=== PATIENT | female | born 2000 | race Asian ===

== ENCOUNTER 2022-02-21 18:42 | Emergency (ER) | payer BC, SELFPAY ==
--- NOTE | 2022-02-21 18:46 | ED.SKABFB ---
HPI - Skin/Abscess/Foreign Bdy General Chief complaint: Skin/Abscess/Foreign Body Stated complaint: Skin Irritation Time Seen by Provider: 02/21/22 18:46 Source: patient and RN notes reviewed History of Present Illness HPI narrative: Patient is a 21-year-old female presents the urgent care with her mother with complaints of skin irritation to the fingertips that is been ongoing for the last couple weeks. Patient states it started out on the right index finger and is now spread to a couple other fingers. Patient states she also woke up this morning with nasal congestion and she has been using Flonase nasal spray. States that she slept with a fan last night and woke up with a sore throat as well as a mild cough. Patient took Mucinex. States that she has been using Neosporin to the fingertips and covering them with bandages and metal foam splints while at work. Denies of any recent fevers or ill contact. States that she has a dermatology appointment in 2 months but was unable to wait due to the excessive peeling. No other acute complaints. No acute distress noted. Patient read the plan of care. Some parts of this dictation were generated by voice recognition software and may contain typographical and/or grammatical inaccuracies. Related Data Home Medications Medication Instructions Recorded Confirmed dextroamphetamine-amphetamine ER 25 mg PO DAILY 02/21/22 02/21/22 25 mg 24hr capsule,extend release famotidine 20 mg tablet 20 mg PO DAILY 02/21/22 02/21/22 norgestimate 0.25 mg-ethinyl 1 tablet PO DAILY 02/21/22 02/21/22 estradiol 35 mcg tablet (Estarylla) Allergies Allergy/AdvReac Type Severity Reaction Status Date / Time No Known Allergies Allergy Verified 02/21/22 18:45 Review of Systems Review of Systems: CONSTITUTIONAL: Denies fever, chills, or sweats. EYES: Denies visual changes, redness, or discharge. ENT: Reports of throat irritation, moderate postnasal drainage, nasal congestion and rhinorrhea CARDIOVASCULAR: Denies chest pain, palpitations, or edema. RESPIRATORY: Reports a mild cough without dyspnea GASTROINTESTINAL: Denies abdominal pain, nausea, vomiting, or diarrhea. GENITOURINARY: Denies dysuria or hematuria. SKIN: Reports of peeling of the fingertips MUSCULOSKELETAL: Denies back pain, joint pain, or myalgia. NEUROLOGIC: Denies headache, numbness, or weakness. All other systems reviewed are negative, except as documented in HPI. PMFSH Comments At the time of my signature, I reviewed and agree with the nursing past medical, surgical, social, and family history. There is no relevant family history pertinent to the patient complaint. Exam Narrative: GENERAL: This is a well-nourished, well-developed patient, in no apparent distress. HEAD: normocephalic, atraumatic. EYES: PERRL. Sclera clear/white. Vision is grossly intact. EARS: External ears normal, auditory canals clear and without drainage, TMs normal without perforation. Hearing grossly intact. NOSE: External nose normal with no obvious nasal discharge, nares without redness, no rhinorrhea. THROAT: Mucous membranes moist, moderate postnasal drainage without exudate or ulceration NECK: Neck supple CARDIOVASCULAR: Regular rate and rhythm without murmurs, gallops, or rubs. RESPIRATORY: Clear to auscultation. Breath sounds equal bilaterally. No wheezes, rales, or rhonchi. SKIN: Epidermis peeling of the fingertips bilaterally without pain NEURO: awake, alert, and oriented to person, place and time. There were no obvious focal neurologic abnormalities. EXTREMITIES: No clubbing, cyanosis, or edema. Course Course Level of Care: Express Care Visit Vital Signs Vital signs: Vital Signs Temperature 98.3 F 02/21/22 18:51 Pulse Rate 90 02/21/22 18:51 Respiratory Rate 16 02/21/22 18:51 Blood Pressure 117/71 02/21/22 18:51 Pulse Oximetry 99 02/21/22 18:51 Oxygen Delivery Room Air 02/21/22 18:51 Temperature 98.3 F 02/21/22 18:51 P
[2022-02-21 18:51] VITALS: BP 117/71; PULSE 90; RESP 16; TEMP 36.8; O2SAT 99
== END 2022-02-21 19:19 | disposition home or self-care (01) ==
PROVIDERS: Emergency Provider Nurse Practitioner Family; PCP Family Medicine
DX: R23.4 Changes in skin texture (principal); J06.9 Acute upper respiratory infection, unspecified; K21.9 Gastro-esophageal reflux disease without esophagitis; F90.9 Attention-deficit hyperactivity disorder, unspecified type
CPT/HCPCS: 99213; G0463

== ENCOUNTER 2022-12-14 18:08 | Emergency (ER) | payer BC, SELFPAY ==
[2022-12-14 18:32] VITALS: BP 123/66; PULSE 80; RESP 18; TEMP 36.2; O2SAT 100
--- NOTE | 2022-12-14 19:28 | ED.URI ---
HPI - URI/Sore Throat General Chief Complaint: Upper Respiratory Infection Stated Complaint: congestion Time Seen by Provider: 12/14/22 19:28 Source: patient Mode of arrival: ambulatory Limitations: no limitations History of Present Illness HPI Narrative: 22-year-old female presents with complaint of postnasal drainage, nasal congestion, sinus pain and pressure, intermittent headaches, fatigue for the past 8-10 days. Patient taking [place], saline nasal spray and Mucinex D without relief of symptoms. Afebrile. Patient reports that sore throat is worse at night and in the morning. States that throat is very dry, voice is worse. Denies chest pain and shortness of breath. Reports that cough started 2-3 days ago. Coughing up white sputum. Also reports pressure to bilateral ears. All systems reviewed and negative except as noted above. Related Data Home Medications Medication Instructions Recorded Confirmed dextroamphetamine-amphetamine ER 25 mg PO DAILY 02/21/22 12/14/22 25 mg 24hr capsule,extend release famotidine 20 mg tablet 20 mg PO DAILY 02/21/22 12/14/22 norgestimate 0.25 mg-ethinyl 1 tablet PO DAILY 02/21/22 12/14/22 estradiol 35 mcg tablet (Estarylla) Allergies Allergy/AdvReac Type Severity Reaction Status Date / Time No Known Allergies Allergy Verified 12/14/22 19:14 Review of Systems Review of Systems: CONSTITUTIONAL: Denies fever, chills, or sweats. reports fatigue. EYES: Denies visual changes, redness, or discharge. ENT: Reports rhinorrhea, congestion, sore throat, bilateral ear pressure. CARDIOVASCULAR: Denies chest pain, palpitations, or edema. RESPIRATORY: Reports cough. Denies dyspnea. GASTROINTESTINAL: Denies abdominal pain, nausea, vomiting, or diarrhea. GENITOURINARY: Denies dysuria or hematuria. SKIN: Denies rash or itching. MUSCULOSKELETAL: Denies back pain, joint pain, or myalgia. NEUROLOGIC: Reports headache. Denies numbness, or weakness. PSYCHIATRIC: Denies anxiety or depression. All other systems reviewed are negative, except as documented in HPI. PMFSH Comments At time of signature, agree with nursing past medical, surgical, social and family history. There is no relevant family history pertinent to the presenting complaint. Exam Narrative: GENERAL: This is a well-nourished, well-developed patient, in no apparent distress. HEAD: normocephalic, atraumatic. EYES: PERRL. Sclera clear/white. Vision is grossly intact. EARS: External ears normal, auditory canals clear and without drainage, fluid bilateral TMs, dull light reflex. No erythema. NOSE: External nose normal with Clear nasal drainage, moderate congestion, bilateral maxillary sinus tenderness. THROAT: Mucous membranes moist, Moderate amount of postnasal drainage with erythema and swelling. NECK: Neck supple, non-tender without lymphadenopathy, masses or thyromegaly. CARDIOVASCULAR: Regular rate and rhythm without murmurs, gallops, or rubs. RESPIRATORY: Clear to auscultation. Breath sounds equal bilaterally. No wheezes, rales, or rhonchi. SKIN: warm, Dry, intact with no suspicious lesions or rash, good texture and turgor. NEURO: awake, alert, and oriented to person, place and time. There were no obvious focal neurologic abnormalities. EXTREMITIES: No joint tenderness, effusion, or edema noted. Course Course Level of Care: Express Care Visit Vital Signs Vital signs: Vital Signs Temperature 36.2 C L 12/14/22 18:32 Pulse Rate 80 12/14/22 18:32 Respiratory Rate 18 12/14/22 18:32 Blood Pressure 123/66 12/14/22 18:32 Pulse Oximetry 100 12/14/22 18:32 Oxygen Delivery Room Air 12/14/22 18:32 Temperature 36.2 C L 12/14/22 18:32 Pulse Rate 80 12/14/22 18:32 Respiratory Rate 18 12/14/22 18:32 Blood Pressure 123/66 12/14/22 18:32 Pulse Oximetry 100 12/14/22 18:32 Oxygen Delivery Room Air 12/14/22 18:32 Reviewed MDM - URI/Sore Throat MDM Narrative
== END 2022-12-14 19:46 | disposition home or self-care (01) ==
PROVIDERS: Emergency Provider Nurse Practitioner Family; PCP Family Medicine
DX: J01.90 Acute sinusitis, unspecified (principal); J04.0 Acute laryngitis; K21.9 Gastro-esophageal reflux disease without esophagitis; F90.9 Attention-deficit hyperactivity disorder, unspecified type
CPT/HCPCS: 87081; 87880; 99213; G0463